=== PATIENT | female | born 1975 | race African-American/Black ===

== ENCOUNTER 2016-07-16 06:09 | Emergency (ER) | payer OTHER ==
[~2016-07-16 06:09] MED LIST: ACETAMINOPHEN PO; ALBUTEROL17 GM INH; ALLERCLEAR10 MG PO; AMARYL PO; AMITRYPTYLINE; AMLODIPINE BESYL5 MG PO; ANTI-DIARRHEAL2 M1 PO; BENZONATATE PO; BIRTH CONTROL PILLS; BYDUREON P2 MG/0.65; CLARITIN10 MG/TA1 PO; CLARITIN10 MG/TAB PO; DESYREL50 MG; DIAZEPAM PO; DICLOFENAC PO; DIFLUCAN PO; DIFLUCAN100 MG PO; DIOVAN320 MG PO; EFFEXOR XR; FIORICET PO; FLEXERIL PO; FLEXERIL10 MG PO; FLUOXETINE HCL40 M1 PO; FLUOXETINE HCL40 MG PO; GLUCOPHAGE500 MG; GLUCOPHAGE500 MG PO; GLUCOTROL PO; GLUCOTROL10 MG; GLUCOTROL10 MG PO; HCTZ PO; HYDROXYZINE HCL25 M1; IBUPROFEN800 MG; INVOKANA300 MG; JANUVIA PO; KETOPROFEN PO; LISINOPRIL PO; LISINOPRIL-HCTZ1 T15 PO; LISINOPRIL-HCTZ1 T16 PO; LISINOPRIL20 MG PO; LOPID600 MG PO; LOPRESSOR PO; LORTAB 5/500 TA1 TA1 PO; LORTAB 7.5-5001 TAB PO; MACROBID100 MG PO; MEDROL PO; METFORMIN HCL500 M1 PO; METFORMIN PO; METOPROLOL TAR100 MG PO; NAPROSYN375 MG PO; NAPROXEN PO; NEURONTIN PO; NICOTINE TRANSD14 MG EXT; NORCO1 TAB 10/3 PO; NORVASC PO; NORVASC10 MG; NORVASC10 MG PO; PAIN RELIEF650 MG PO; PEPCID AC20 M2 PO; PHENERGAN PO; PHENERGAN VC W120 M1 PO; PHENERGAN25 M1 PO; PHENERGAN25 MG PO; PIOGLITAZONE30 MG PO; PRAVACHOL20 MG; PRAVACHOL20 MG PO; PREDNISONE PO; PRILOSEC PO; PRINIVIL20 M1; PROPRANOLOL PO; REGLAN PO; SEROQUEL PO; TOPROL XL PO; ULTRAM PO; VENLAFAXINE HC150 M1; VICODIN 5/500 T1 TAB; VICODIN 5/500 T1 TAB PO; VOLTAREN75 MG PO; YASMIN 28 TABLE1 TAB PO; ZANAFLEX PO; ZOFRAN ODT4 MG PO; ZOFRAN PO; ZOFRANODT PO; ZOLOFT PO; ZOLOFT100 MG PO
[2016-07-16] MEDS ORDERED: PREDNISONE PO (06:31)
[2016-07-16] MEDS ORDERED: VALIUM10 MG PO (06:31)
== END 2016-07-16 06:35 | disposition home or self-care (01) ==
LOC: SED 06:09
DX: M54.10 Radiculopathy, site unspecified (principal); F17.210 Nicotine dependence, cigarettes, uncomplicated; Z88.5 Allergy status to narcotic agent; Z88.8 Allergy status to other drugs, medicaments and biological substances; Z79.899 Other long term (current) drug therapy
CPT/HCPCS: 99282